=== PATIENT | female | born 1945 | race Caucasian/White ===

== ENCOUNTER 2022-04-01 01:33 | Day surgery (SDC) | payer MEDICARE, SELFPAY ==
[2022-03-21 08:54] VITALS: BMI 24.0
--- NOTE | 2022-04-01 06:39 | PM.HPGS ---
History of Present Illness History of Present Illness Consent: Risks, benefits, and alternatives have been discussed and questions answered. Patient agrees to proceed with procedure. Chief complaint: Abnormal CT scan Narrative: Elo Rangel is a 76 year old female Please been having abdominal pain is referred for investigation of an abnormal CT scan showing thickening of the stomach Review of Systems Review of Systems: All systems reviewed & are unremarkable except as noted in HPI and below PMFSH Past Medical History Medical History HTN (hypertension) Hyperlipidemia Social History Social History Alcohol intake: current Drinks per week: 3 Living arrangements: with family Spiritual care concerns: No Meds Home Medications and Allergies Home Medications Medication Instructions Recorded Confirmed Type alendronate 70 mg tablet 70 mg PO WEEKLY 03/21/22 04/01/22 History aspirin 81 mg capsule 81 mg PO DAILY 03/21/22 04/01/22 History atorvastatin 10 mg tablet 10 mg PO DAILY 03/21/22 04/01/22 History calcium carb 300 mg-D3 800 1 tablet PO BID 03/21/22 04/01/22 History 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-nelson-Zn tablet (Caltrate + D3 Plus Minerals) cholecalciferol (vitamin D3) 100 100 mcg PO DAILY 03/21/22 04/01/22 History mcg (4,000 unit) capsule diltiazem HCl 120 mg 120 mg PO DAILY 03/21/22 04/01/22 History capsule,extended release 24 hr, controlled (DILT-XR) omeprazole 20 mg capsule,delayed 20 mg PO DAILY 03/21/22 04/01/22 History release Allergies Allergy/AdvReac Type Severity Reaction Status Date / Time No Known Allergies Allergy Verified 04/01/22 12:33 Exam Const: General: alert Orientation/consciousness: patient oriented x3 Resp: Auscultation: clear to auscultation bilaterally Cardio: Rhythm: regular rhythm GI: GI Palp: Yes Soft to palpation and No Tenderness to palpation present (GI) Neuro: General: patient oriented x3 Assessment and Plan Assessment and plan (1) Abnormal CT scan, gastrointestinal tract: Code(s): R93.3 - Abnormal findings on diagnostic imaging of other parts of digestive tract Status: Acute Assessment and Plan: EGD with possible biopsy or dilatation or cautery.
[2022-04-01 12:34] VITALS: BP 132/56; PULSE 68; RESP 16; TEMP 36.3; O2SAT 98; BMI 23.7
--- NOTE | 2022-04-01 12:40 | WPDANESEPPF ---
Anes - Initial Pre Proc Eval Procedure: Operation Date: 04/01/22 14:15 Proposed Procedures p Esophagogastroduodenoscopy EGD - Irvin Tierney MD Date/Time: 04/01/22 12:40 Surgeon: Irvin Tierney MD Pre Op Diagnosis: Abnormal CT scan Patient Data Age: 76 Gender: F Height: 1.52 m Weight: 55.1 kg Last Vital Signs Temp 36.3 C L 04/01/22 12:34 Pulse 68 04/01/22 12:34 Resp 16 04/01/22 12:34 BP 132/56 L 04/01/22 12:34 Pulse Ox 98 04/01/22 12:34 O2 Del Method Room Air 04/01/22 12:34 Allergies Allergy/AdvReac Type Severity Reaction Status Date / Time No Known Allergies Allergy Verified 04/01/22 12:33 Home Medications Medication Instructions Recorded Confirmed Type alendronate 70 mg tablet 70 mg PO WEEKLY 03/21/22 04/01/22 History aspirin 81 mg capsule 81 mg PO DAILY 03/21/22 04/01/22 History atorvastatin 10 mg tablet 10 mg PO DAILY 03/21/22 04/01/22 History calcium carb 300 mg-D3 800 1 tablet PO BID 03/21/22 04/01/22 History 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 [facility] Past Medical History Medical History (Updated 04/01/22 @ 12:40 by Idris Tom MD) HTN (hypertension) Hyperlipidemia Social History Social History Alcohol intake: current Drinks per week: 3 Living arrangements: with family Spiritual care concerns: No Anes - Eval Final PreProcedure Day of Procedure 04/01/22 12:40 Patient weight: normal Heart: regular rate and rhythm Lungs: clear to auscultation Airway: Mallampati scale class II Neurological: alert and oriented Last oral intake: >/= 8 hours ASA classification: II Emergent: no Anesthetic plan: proceed Anesthesia type and monitoring: general GIVS and standard monitoring Results Review: All pre-operative results and documents have been reviewed as part of the pre-operative evaluation. Informed Consent: The patient's anesthetic plan and its attendant risks and benefits were discussed with the patient/family/POA. Questions were solicited and answers provided to the satisfaction of the patient/family/POA.
[2022-04-01] MEDS: LACTATED RINGERS 1,000 ML 150 ML IV CONT (12:44)
[2022-04-01] MEDS: BENZOCAINE (*SP) 60 ML SPRAY CAN (HURRICAINE) 1 SPRAY MUCOUS MEM (13:28)
[2022-04-01 13:37] VITALS: BP 108/56; PULSE 62; RESP 16; O2SAT 98
[2022-04-01 13:47] VITALS: BP 119/57; PULSE 63; RESP 22; O2SAT 99
[2022-04-01 13:57] VITALS: BP 129/63; PULSE 64; RESP 17; O2SAT 100
== END 2022-04-01 14:15 | disposition home or self-care (01) ==
PROVIDERS: PCP Internal Medicine; Visit Provider Internal Medicine Gastroenterology
PROC: 0DJ08ZZ Inspection of Upper Intestinal Tract, Via Natural or Artificial Opening Endoscopic (ICD-10-PCS; CPT 43235; principal; 2022-04-01 14:15)
DX: K21.9 Gastro-esophageal reflux disease without esophagitis (principal); I10 Essential (primary) hypertension; E78.5 Hyperlipidemia, unspecified; Z79.82 Long term (current) use of aspirin
CPT/HCPCS: 43239; 87081; J2704; J7120